=== PATIENT | male | born 1995 | race Caucasian/White ===

== ENCOUNTER 2018-12-21 20:29 | Emergency (ER) | payer SELFPAY ==
[~2018-12-21 20:29] MED LIST: AMOX500T10 PO; AMOX875T60 PO; HYDR-653 PO; IBUP600T22 PO; LOR5/325 PO; TRAM-420 PO
[2018-12-21] MEDS ORDERED: ASPIRIN 81 MG CHEW PO ONE (20:45)
[2018-12-21 21:11] LABS: PLATELET COUNT, AUTOMATED 294 K/uL (150-450)
--- NOTE | 2018-12-21 21:16 | ER Report ---
History and Physical Time Seen By MD: 20:38 Hx. of Stated Complaint: Pt. having chest pain for 3 days, but has increased today. Pain is along the left sternal border, pain 8/10. Pt. reports pressure and burning. Pt. is a smoker, smokes a pack a day. Coughs regularly. No fevers. HPI/ROS CHIEF COMPLAINT: Chest pain HISTORY OF PRESENT ILLNESS: [Patient is a 23-year-old male with no significant past medical history who presents to the emergency department complaining of chest pain for the last 3 days seems to be increasing over the last 72 hours. Pain is along the left sternal border he reports 8 out of 10 and describes it as a burning. Patient is a smoker. Denies fevers or chills or cough or congestion. Patient does admit to drinking 2-4 red bulls per day. REVIEW OF SYSTEMS: Constitutional: No fever, no chills. Eyes: No discharge. ENT: No sore throat. Cardiovascular: Left-sided chest pain Respiratory: No cough, no shortness of breath. Gastrointestinal: No abdominal pain, no vomiting. Genitourinary: No hematuria. Musculoskeletal: No back pain. Skin: No rashes. Neurological: No headache. Allergies: Coded Allergies: No Known Drug Allergies (Unverified , 12/21/18) Home Meds Active Scripts Tramadol Hcl (TRAMADOL HCL) 50 Mg Tablet, 50 MG PO Q4-6H PRN for PAIN, #12 TAB Prov:MEHRDAD MENDOZA [facility] 09/02/17 Amoxicillin 500 Mg Tab (AMOXICILLIN 500 MG TAB) 500 Mg Tablet, 1 TAB PO Q8H, #30 TAB Prov:MEHRDAD MENDOZA [facility] 09/02/17 Past Medical/Surgical History Noncontributory towards his chief complaint Hx Smoking: Yes (1/2PPD) Smoking Status: Current: Every Day Smoker Exposure to Second Hand Smoke?: No Hx Substance Use Disorder: No Hx Alcohol Use: Yes (OCC) Constitutional Vital Sign - Last 24 Hours 12/21/18 12/21/18 12/21/18 12/21/18 20:39 20:41 20:59 21:00 Temp 98.4 Pulse 76 82 Resp 16 10 B/P (MAP) 142/78 142/78 (99) 127/65 (85) Pulse Ox 94 91 O2 Delivery Room Air 212/21/18 12/21/18 12/21/18 21:29 21:34 21:35 21:49 Pulse ??? 77 Resp 14 B/P (MAP) 137/70 (92) Pulse Ox 94 12/21/18 12/21/18 12/21/18 22:00 22:04 22:19 Pulse 67 79 Resp 26 28 B/P (MAP) 128/59 (82) Physical Exam General Appearance: The patient is alert, has no immediate need for airway protection and no signs of toxicity. Eyes: Pupils equal and round no pallor or injection. ENT, Mouth: Mucous membranes are moist. Respiratory: There are no retractions, lungs are clear to auscultation. Cardiovascular: Regular rate and rhythm. Gastrointestinal: Abdomen is soft and non tender, no masses, bowel sounds normal. Neurological: Awake and alert Skin: Warm and dry, no rashes. Musculoskeletal: Neck is supple non tender. Extremities are nontender, nonswollen and have full range of motion. Medical Decision Making Data Points Result Diagram: 12/21/18205512/21/182055 Laboratory Hematology Test 12/21/18 20:56 Red Blood Count 5.58 M/uL (4.00-5.60) Mean Corpuscular Volume 90.6 fL (80.0-96.0) Mean Corpuscular Hemoglobin 30.9 pg (26.0-33.0) Mean Corpuscular Hemoglobin Concent 34.1 g/dL (32.0-36.0) Red Cell Distribution Width 12.6 % (11.5-14.5) Mean Platelet Volume 7.8 fL (7.2-11.1) Neutrophils (%) (Auto) 51.8 % (39.4-72.5) Lymphocytes (%) (Auto) 38.1 % (17.6-49.6) Monocytes (%) (Auto) 8.3 % (4.1-12.4) Eosinophils (%) (Auto) 1.4 % (0.4-6.7) Basophils (%) (Auto) 0.4 % (0.3-1.4) Nucleated RBC Relative Count (auto) 0.1 /100WBC Neutrophils # (Auto) 4.6 K/uL (2.0-7.4) Lymphocytes # (Auto) 3.4 K/uL (1.3-3.6) Monocytes # (Auto) 0.7 K/uL (0.3-1.0) Eosinophils # (Auto) 0.1 K/uL (0.0-0.5) Basophils # (Auto) 0.0 K/uL (0.0-0.1) Nucleated RBC Absolute Count (auto) 0.01 K/uL Prothrombin Time 13.4 seconds (12.0-14.4) Prothromb Time International Ratio 1.02 Activated Partial Thromboplast Time 31 seconds (23-35) Sodium Level 140 mmol/L (137-145) Potassium Level 4.2 mmol/L (3.5-5.0) Chloride Level 107 mmol/L (98-107) Carbon Dioxide Level 25 mmol/L (22-30) Blood Urea Nitrogen 11 mg/dl (9-21) Creatinine 1.00 mg/dl (0.66-1.25) Glomerular Filtration Rate Calc > 60.0 Random Glucose 85 mg/dl (75-110) Calcium Level 9.4 mg/dl (8.4-10.2) Total Bilirubin 0.4 mg/dl (0.2-1.3) Aspartate Amino Transf (AST/SGOT) 31 U/L (0-35) Alanine Aminotransferase (ALT/SGPT) 52 U/L (0-56) Alkaline Phosphatase 88 U/L (0-126) Troponin I < 0.012 ng/ml B-Type Natriuretic Peptide < 5 pg/ml (0-100) Total Protein 7.2 g/dl (6.3-8.2) Albumin 4.6 g/dl (3.5-5.0) Chemistry Test 12/21/18 20:56 White Blood Count 8.8 k/uL (4.5-11.0) Red Blood Count 5.58 M/uL (4.00-5.60) Hemoglobin 17.2 g/dL (14.0-18.0) Hematocrit 50.5 % (42.0-52.0) Mean Corpuscular Volume 90.6 fL (80.0-96.0) Mean Corpuscular Hemoglobin 30.9 pg (26.0-33.0) Mean Corpuscular Hemoglobin Concent 34.1 g/dL (32.0-36.0) Red Cell Distribution Width 12.6 % (11.5-14.5) Platelet Count 294 K/uL (150-450) Mean Platelet Volume 7.8 fL (7.2-11.1) Neutrophils (%) (Auto) 51.8 % (39.4-72.5) Lymphocytes (%) (Auto) 38.1 % (17.6-49.6) Monocytes (%) (Auto) 8.3 % (4.1-12.4) Eosinophils (%) (Auto) 1.4 % (0.4-6.7) Basophils (%) (Auto) 0.4 % (0.3-1.4) Nucleated RBC Relative Count (auto) 0.1 /100WBC Neutrophils # (Auto) 4.6 K/uL (2.0-7.4) Lymphocytes # (Auto) 3.4 K/uL (1.3-3.6) Monocytes # (Auto) 0.7 K/uL (0.3-1.0) Eosinophils # (Auto) 0.1 K/uL (0.0-0.5) Basophils # (Auto) 0.0 K/uL (0.0-0.1) Nucleated RBC Absolute Count (auto) 0.01 K/uL Prothrombin Time 13.4 seconds (12.0-14.4) Prothromb Time International Ratio 1.02 Activated Partial Thromboplast Time 31 seconds (23-35) Glomerular Filtration Rate Calc > 60.0 Calcium Level 9.4 mg/dl (8.4-10.2) Total Bilirubin 0.4 mg/dl (0.2-1.3) Aspartate Amino Transf (AST/SGOT) 31 U/L (0-35) Alanine Aminotransferase (ALT/SGPT) 52 U/L (0-56) Alkaline Phosphatase 88 U/L (0-126) Troponin I < 0.012 ng/ml B-Type Natriuretic Peptide < 5 pg/ml (0-100) Total Protein 7.2 g/dl (6.3-8.2) Albumin 4.6 g/dl (3.5-5.0) Coagulation Test 12/21/18 20:56 Prothrombin Time 13.4 seconds Prothromb Time International Ratio 1.02 Activated Partial Thromboplast Time 31 seconds EKG/Imaging EKG Interpretation EKG shows normal sinus rhythm with a ventricular rate of [address] segment or t wave abnormalities Monitor Interpretation: Normal Sinus Rhythm Imaging FACILITY: [facility] [place] PATIENT NAME: Stanislav Morton : 1995 MR: [id number] V: [id number] EXAM DATE: ORDERING PHYSICIAN: KENNEY PLATA TECHNOLOGIST: [facility] Patient: Stanislav Morton : 1995 Visit/Account:[id number] Date of Sevice: 12/21/2018 INDICATION: Chest Pain. DATE: 12/21/2018 10:01 PM. TECHNIQUE: CHEST PA LAT COMPARISON: Chest radiograph November 22, 2016 FINDINGS: Heart size is normal. No effusion, consolidation, or pneumothorax. Normal expansion. IMPRESSION: No acute findings. Report Dictated By: Howie Orozco MD at 12/21/2018 10:01 PM Report E-Signed By: Howie Orozco MD at 12/21/2018 10:02 PM WSN:[id number] ED Course/Re-evaluation ED Course Workup in the emergency department unremarkable, troponin negative chest x-ray negative EKG normal. I will discharge home. Decision to Disposition Date: Dec 21, 2018 Decision to Disposition Time: 22:05 Depart Departure Latest Vital Signs Vital Signs Date Time Temp Pulse Resp B/P (MAP) Pulse Ox O2 Delivery O2 Flow Rate FiO2 12/21/18 22:19 79 28 12/21/18 22:00 128/59 (82) 12/21/18 21:29 94 12/21/18 20:39 98.4 Room Air Impression: Primary Impression: Chest pain Condition: Improved Disposition: HOME OR SELF-CARE Referrals: ALEX BUCK DO call to schedule an appointment to establish care Patient Instructions: Noncardiac Chest Pain (ED) Problem Qualifiers Primary Impression: Chest pain Chest pain type: unspecified Qualified Codes: R07.9 - Chest pain, unspecified KENNEY PLATA MD Dec 21, 2018 21:16
[2018-12-21 21:18] LABS: INR 1.02
--- NOTE | 2018-12-21 21:43 | EKG ---
FACILITY: [facility] PATIENT NAME: SOLANGE BRENNAN : 1995 MR: [id number] V: [id number] EXAM DATE: ORDERING PHYSICIAN: KENNEY PLATA TECHNOLOGIST: TIARRA Tucker Reason : CP Blood Pressure : / mmHG Vent. Rate : 083 BPM Atrial Rate : 083 BPM P-R Int : 140 ms QRS Dur : 086 ms QT Int : 382 ms P-R-T Axes : 055 068 064 degrees QTc Int : 448 ms Normal sinus rhythm Normal ECG No previous ECGs available Confirmed by Ray Garcia ([id number] on 12/21/2018 11:11:52 PM Referred By: Confirmed By:Ray Mathur
[2018-12-21 22:00] VITALS: BP 128/59
--- NOTE | 2018-12-21 22:05 | RADIOLOGY IMAGING REPORT ---
FACILITY: [facility] [place] PATIENT NAME: Stanislav Morton : 1995 MR: [id number] V: [id number] EXAM DATE: ORDERING PHYSICIAN: KENNEY PLATA TECHNOLOGIST: Location: [facility] [place] Patient: Stanislav Morton : 1995 Visit/Account:[id number] Date of Sevice: 12/21/2018 INDICATION: Chest Pain. DATE: 12/21/2018 10:01 PM. TECHNIQUE: CHEST PA LAT COMPARISON: Chest radiograph November 22, 2016 FINDINGS: Heart size is normal. No effusion, consolidation, or pneumothorax. Normal expansion. IMPRESSION: No acute findings. Report Dictated By: Howie Orozco MD at 12/21/2018 10:01 PM Report E-Signed By: Howie Orozco MD at 12/21/2018 10:02 PM WSN:[id number]
== END 2018-12-21 22:25 | disposition home or self-care (01) ==
LOC: ER 20:32
DX: R07.9 Chest pain, unspecified (principal); F17.210 Nicotine dependence, cigarettes, uncomplicated
CPT/HCPCS: 71046; 82040; 82247; 82310; 82374; 82435; 82565; 82947; 83880; 84075; 84132; 84155; 84295; 84450; 84460; 84484; 84520; 85025; 85610; 85730; 93005; 99284